=== PATIENT | male | born 1970 | race Caucasian/White ===

== ENCOUNTER 2019-01-27 19:57 | Emergency (ER) | payer MEDICAID ==
[~2019-01-27] VITALS: Ht 167.6 cm; Wt 68.9 kg
[2019-01-27 20:00] VITALS: BP_SYST 138
[2019-01-27] MEDS ORDERED: KETOROLAC TROMETHAMINE 60 MG/2 ML VIAL IM ONE (21:15)
[2019-01-27] MEDS ORDERED: METHOCARBAMOL 500 MG TABLET PO ONE (22:45)
[2019-01-27 23:03] VITALS: BP_SYST 145
== END 2019-01-27 23:03 | disposition home or self-care (01) ==
LOC: SED 19:57
DX: S33.5XXA Sprain of ligaments of lumbar spine, initial encounter (principal); Z88.0 Allergy status to penicillin; W07.XXXA Fall from chair, initial encounter; Y93.89 Activity, other specified; Y92.89 Other specified places as the place of occurrence of the external cause; Y99.8 Other external cause status
CPT/HCPCS: 71100; 72100; 96372; 99283; J1885

== ENCOUNTER 2019-11-27 12:54 | Emergency (ER) | payer MEDICAID, SELFPAY ==
[~2019-11-27] VITALS: Ht 160 cm; Wt 68.0 kg
[2019-11-27 12:54] VITALS: BP_SYST 148
--- NOTE | 2019-11-27 12:54 | NUR ---
Patient to ER surge tent for evaluation.
--- NOTE | 2019-11-27 12:55 | NUR ---
Patient came from home for evaluation. States he wants a COVID-19 test so he can go back to work.
--- NOTE | 2019-11-27 13:15 | NUR ---
ER in tent examining patient.
[2019-11-27 13:20] VITALS: BP_SYST 148
--- NOTE | 2019-11-27 13:20 | NUR ---
Patient given written and verbal discharge instructions and verbalizes understanding. ER MD discussed with patient the results and treatment provided. Patient in stable condition. ID arm band removed. Patient educated on pain management and to follow up with PMD. Pain Scale 0/10. Opportunity for questions provided and answered. Medication side effect fact sheet provided.
--- NOTE | 2019-11-28 16:56 | NUR ---
Covid results Called patient to inform of covid results at [phone], unable to speak to patient left message to return call to [facility] at convenience.
== END 2019-11-27 13:20 | disposition home or self-care (01) ==
LOC: SED 12:54
DX: Z20.828 Contact with and (suspected) exposure to other viral communicable diseases (principal); Z88.0 Allergy status to penicillin
CPT/HCPCS: 99283; U0003